=== PATIENT | male | born 1935 | race Caucasian/White ===

== ENCOUNTER 2017-12-12 08:22 | Inpatient (IN) ==
[2017-12-12 08:48] VITALS: BMI 18.8
[2017-12-12] MEDS ORDERED: LEVOTHYROXINE PO SCH (09:00)
[2017-12-12] MEDS ORDERED: NON-FORMULARY MEDICATION (Ferrous Sulfate [Iron] 325 MG) PO SCH (09:00)
--- NOTE | 2017-12-12 09:04 | ED.PDOC ---
General ED Provider: Dr. MIKE HERNANDES Chief Complaint: Weakness Stated Complaint: generalized weakness Time Seen by Physician: 08:29 (pt suffers from melanoma has been unable to eat ) Mode of Arrival: Wheelchair Information Source: Patient, Family Exam Limitations: No limitations Primary Care Provider: SASCHA BEASLEY Nursing and Triage Documentation Reviewed and Agree: Yes Does patient meet sepsis criteria?: No System Inflammatory Response Syndrome: Not Applicable Sepsis Protocol: For patient's 13 years and over: Temp is 96.8 and below OR 101 and greater Pulse >90 BPM Resp >20/minute Acutely Altered Mental Status Are patient's symptoms suggestive of a new infection, such as: -Pneumonia -Skin, Soft Tissue -Endocarditis -UTI -Bone, Joint Infection -Implantable Device -Acute Abdominal Infection -Wound Infection -Meningitis -Blood Stream Catheter Infection -Unknown Neurological Complaint Exam - Weakness Complaint/Exam Last Known Well: 1 week Onset: Gradual Duration: 1 week to 10 days more past few days no motor deficits Episodes Lasting: Days Initial Severity: Moderate Current Severity: Moderate Character: Reports: Weak Aggravating: Reports: None Alleviating: Reports: Rest Associated Signs and Symptoms: Denies: Nausea, Vomiting, Diaphoresis, Tinnitus, Chest pain, Short of air, Palpitations, Unsteady gait, GI blood loss, Visual changes, Decreased oral intake, Change in medication, Change in diet, OTC meds, Loss of balance Related History: Similar episode Cardiac Risk Factors: Reports: Hypertension, Diabetes, Elevated lipids CVA Risk Factors: Reports: Diabetes, Hypertension Related Surgical History: Reports: None JVD Present: No Carotid Bruit Present: No Rectal Heme Positive: No Glascow Coma Scale (see protocol): 15 Nystagmus Present: No Gag Reflex Present: No Meningeal Signs Positive: No Focal Weakness: Present: None Focal Sensory Loss: Present: None Gait: Unable Differential Diagnoses: Dysrhythmia, Metabolic abnormalities, Other (poor intake ) Quality Indicators for Cardiac Chest Pain: EKG in 10min. Quality Indicators for AMI: EKG in 10min. Quality Indicator For Non-Traumatic Chest Pain/Syncope: EKG Performed Review of Systems - Review Of Systems Constitutional: Reports: Malaise, Weakness Eyes: Reports: No symptoms Ears, Nose, Mouth, Throat: Reports: No symptoms Respiratory: Reports: No symptoms Cardiac: Reports: No symptoms GI: Reports: No symptoms : Reports: No symptoms Musculoskeletal: Reports: No symptoms Skin: Reports: No symptoms Neurological: Reports: No symptoms Endocrine: Reports: No symptoms Hematologic/Lymphatic: Reports: No symptoms All Other Systems: Reviewed and Negative Past Medical History - Past Medical History Previously Healthy: Yes Endocrine: Reports: DM 2, Hypothyroid, Dyslipidemia Cardiovascular: Reports: Hypertension Respiratory: Reports: None Hematological: Reports: None Gastrointestinal: Reports: GERD Genitourinary: Reports: None Neuro/Psych: Reports: None Musculoskeletal: Reports: None Cancer: Reports: Skin - Surgical History General Surgical History: Reports: Unknown - Family History Family History: Reports: Unknown - Social History Smoking Status: Former smoker Hx Substance Use: No Alcohol Screening: Occasionally Physical Exam - Physical Exam Appearance: Ill-appearing, Thin Ill-appearing: Moderate Eyes: SUSAN, EOMI, Conjunctiva clear ENT: Dry mucosa Respiratory: Airway patent, Breath sounds clear, Breath sounds equal, Respirations nonlabored Cardiovascular: RRR, Pulses normal, No rub, No murmur GI/: Soft, Nontender, No masses, Bowel sounds normal, No Organomegaly Musculoskeletal: Normal strength, ROM intact, No edema, No calf tenderness Skin: Warm, Dry, Normal color Neurological: Sensation intact, Motor intact, Reflexes intact, Cranial nerves intact, Alert, Oriented Psychiatric: Affect appropriate, Mood appropriate Interpretation - Radiology Interpretation Radiology Interpretation By: Radiologist Radiology Results: Positive (hilar mass) - Charter Coordinator Rate: Normal Rhythm: Sinus - EKG Interpretation Rate: Normal Rhythm: Sinus Ectopy: PACs (L.A.F.B SLIGHLY PROLONGED QT ) [place]: Left Physician Notification - Case Discussed Physician Notified: pmd Time of Notification: 10:10 Admit To: Inpatient Critical Care Note - Critical Care Note Total Time (mins): 0 Course - Course Hematology/Chemistry: 12/12/17 09:12 12/12/17 09:12 Orders, Labs, Meds: Lab Review 12/12/17 12/12/17 12/12/17 09:12 09:12 09:12 WBC 2.85 L RBC 4.09 L Hgb 11.2 L Hct 34.1 L MCV 83.4 MCH 27.4 MCHC 32.8 RDW Coeff of Hema 15.9 H Plt Count 197 Immature Gran % (Auto) 15.4 H Neut % (Auto) 44.5 Lymph % (Auto) 26.0 [place] % (Auto) 7.7 Eos % (Auto) 6.0 Baso % (Auto) 0.4 Immature Gran # (Auto) 0.4 Neut # (Auto) 1.3 L Lymph # (Auto) 0.7 [place] # (Auto) 0.2 L Eos # (Auto) 0.2 Baso # (Auto) 0.0 PT 11.2 H INR 1.12 APTT 34.0 Sodium 135 L Potassium 3.5 Chloride 100 Carbon Dioxide 25 Anion Gap 13.5 BUN 14 Creatinine 0.60 Estimated GFR (MDRD) 129.00 BUN/Creatinine Ratio 23.33 Glucose 174 H Calcium 8.3 Total Bilirubin 1.4 H AST 8 L ALT 17 Alkaline Phosphatase 64 Total Protein 5.1 L Albumin 2.3 L Globulin 2.8 Albumin/Globulin Ratio 0.82 Orders Category Date Time Status EKG-(ED ONLY) Stat CARDIO 12/12/17 08:46 Completed EKG-(IP & OP ONLY) DAILY CARDIO 12/13/17 06:00 Ordered EKG-(IP & OP ONLY) DAILY CARDIO 12/14/17 06:00 Ordered EKG-(IP & OP ONLY) DAILY CARDIO 12/15/17 06:00 Ordered BLOOD GLUCOSE MONITORING ACCUCHECK Q6H CARE 12/12/17 09:07 Active GIVE HS SNACK 2100 CARE 12/12/17 09:08 Active INTAKE & OUTPUT Q8HR CARE 12/12/17 09:08 Active VITAL SIGNS Q8HR CARE 12/12/17 09:01 Active ADA 1800 CAMI. DIET DIETARY 12/12/17 Lunch Ordered HS SNACK DIETARY 12/12/17 Dinner Ordered ED IV/MEDIPORT/POWERPORT .ONCE EMERGENCY 12/12/17 08:46 Active CBC W/ AUTO DIFF DAILY@0600 LAB 12/13/17 06:00 Ordered CBC W/ AUTO DIFF DAILY@0600 LAB 12/14/17 06:00 Ordered CBC W/ AUTO DIFF Stat LAB 12/12/17 09:12 Completed COMPREHENSIVE METABOLIC PANEL DAILY@0600 LAB 12/13/17 06:00 Ordered COMPREHENSIVE METABOLIC PANEL DAILY@0600 LAB 12/14/17 06:00 Ordered COMPREHENSIVE METABOLIC PANEL Stat LAB 12/12/17 09:12 Completed PARTIAL THROMBOPLASTIN TIME Stat LAB 12/12/17 09:12 Completed PT WITH INR Stat LAB 12/12/17 09:12 Completed URINALYSIS C & S IF INDICATED Stat LAB 12/12/17 08:46 Uncollected 0.9 % Sodium Chloride [Saline Flush] MEDS 12/12/17 08:45 Active 1 syr IVF PRN PRN Aspirin [Aspirin Chewable] MEDS 12/12/17 09:00 Active 81 mg PO DAILYWM Atorvastatin Calcium [Lipitor] MEDS 12/12/17 09:00 Active 10 mg PO DAILY Ferrous Sulfate MEDS 12/12/17 09:30 Active 324 mg PO DAILY Folic Acid MEDS 12/12/17 09:00 Active 1 mg PO DAILY Insulin Regular, Human [Humulin R] MEDS 12/12/17 09:09 Active See Protocol SUBCUT PRN PRN Levothyroxine Sodium [Synthroid] MEDS 12/12/17 09:30 Active 200 mcg PO QDAC Pantoprazole Sodium [Protonix] MEDS 12/12/17 09:00 Active 40 mg PO QDAC Sodium Chloride 0.9% [Sodium Chloride] 1,500 ml MEDS 12/12/17 09:30 Active IV 75 mls/hr CHEST, 1V AP ONLY Stat RADS 12/12/17 08:46 Completed Medications Generic Name Dose Route Start Last Admin Trade Name Freq PRN Reason Stop Dose Admin Aspirin 81 mg 12/12/17 09:00 Aspirin Chewable PO DAILYWM RUFINA Atorvastatin Calcium 10 mg 12/12/17 09:00 Lipitor PO DAILY RUFINA Ferrous Sulfate 324 mg 12/12/17 09:30 Ferrous Sulfate PO DAILY RUFINA Folic Acid 1 mg 12/12/17 09:00 Folic Acid PO DAILY RUFINA Sodium Chloride 1,500 mls @ 75 mls/hr 12/12/17 09:30 Sodium Chloride IV .Q20H RUFINA Insulin Human Regular 0 unit 12/12/17 09:09 Humulin R SUBCUT PRN PRN Hyperglycemica Protocol Levothyroxine Sodium 200 mcg 12/12/17 09:30 Synthroid PO QDAC RUFINA Pantoprazole Sodium 40 mg 12/12/17 09:00 Protonix PO QDAC RUFINA Sodium Chloride 1 syr 12/12/17 08:45 Saline Flush IVF PRN PRN To flush IV Vital Signs: Temp Pulse Resp BP Pulse Ox 12/12/17 08:22 97.8 F 101 H 20 95/56 L 97 Departure - Departure Time of Disposition: 10:10 Disposition: ADMITTED INPATIENT Discharge Problem: Generalized weakness Anemia Qualifiers: Anemia type: unspecified type Qualified Code(s): D64.9 - Anemia, unspecified Neutropenia Qualifiers: Neutropenia type: unspecified Qualified Code(s): D70.9 - Neutropenia, unspecified Instructions: Weakness (ED) Condition: Good Pt referred to PMD for follow-up: Yes IPMP verified?: No Additional Instructions: Please call your Family Physician as soon as possible to schedule a follow-up appointment. Allergies/Adverse Reactions: Allergies No Known Allergies Allergy (Verified 12/12/17 08:32) Home Medications: Ambulatory Orders Aspirin [Win Chewable] 81 mg PO DAILY 09/21/15 Atorvastatin Calcium [Lipitor] 10 mg PO DAILY 09/21/15 Ferrous Sulfate [Iron] 325 mg PO DAILY 09/21/15 Levothyroxine Sodium [Synthroid] 0.2 mg PO DAILY 09/21/15 Pantoprazole Sodium [Protonix] 40 mg PO DAILY 09/21/15 Folic Acid 1 mg PO DAILY 12/12/17 Insulin Glargine,Hum.rec.anlog [Hubert Tate] 25 unit SQ INSULIN EVENING Disposition Discussed With: Patient, Family
--- NOTE | 2017-12-12 09:07 | DI ---
EXAM: Chest one view, frontal view only. HISTORY: Cough. COMPARISON: None available. FINDINGS: Right-sided chest port present from a subclavian approach with tip projecting over the sup erior vena cava. Mass-like consolidation in the right hilum measures up to 7.5 cm. There is increas ed opacity in the right paratracheal region as well which may be accentuated by rightward deviation o f the lower trachea and right-sided volume loss. Left lung is grossly clear. No pleural effusion or pneumothorax identified. Heart size is normal. There is no vascular congestion. No acute osseous a bnormality is detected. IMPRESSION: Large right hilar mass likely representing bronchogenic carcinoma. No prior studies available for co mparison, although presence of chest port suggests this is a known finding.
[2017-12-12] MEDS: SODIUM CHLORIDE 1,500 ML IV SCH (11:16)
[2017-12-12] MEDS ORDERED: SODIUM CHLORIDE 1,000 ML IV ONE (11:16)
[2017-12-12] MEDS: ASPIRIN CHEWABLE PO SCH (11:47)
[2017-12-12] MEDS: PROTONIX PO SCH (11:47)
[2017-12-12] MEDS: SYNTHROID PO SCH (11:47)
[2017-12-12] MEDS: LIPITOR PO SCH (11:48)
[2017-12-12] MEDS: FERROUS SULFATE PO SCH (11:48)
[2017-12-12] MEDS: FOLIC ACID PO SCH (11:48)
[2017-12-12] MEDS: HUMULIN R SUBCUT PRN ×2 (18:09→20:24)
[2017-12-13] MEDS: SODIUM CHLORIDE 1,500 ML IV SCH ×2 (00:08→14:00)
[2017-12-13] MEDS ORDERED: SODIUM CHLORIDE 1,000 ML IV ONE ×2 (00:08→14:00)
[2017-12-13] MEDS: SYNTHROID PO SCH (05:46)
[2017-12-13] MEDS: PROTONIX PO SCH (05:46)
--- NOTE | 2017-12-13 08:22 | PN ---
DATE OF SERVICE: 12/12/17 SUBJECTIVE: The patient was hospitalized with failure to thrive and dehydration. The patient has a mass in the chest, hilar mass that seems to be obstructing with dysphagia. The patient has melanoma which has metastasized. The patient endstage melanoma with metastasis, considering Hospice. We will let him know tomorrow. Family is agreeable to Hospice especially the . CONDITION: Stable for now. TIME SPENT: More than 30 minutes. Plan and coordination of the patient's care discussed in the presence of nurse. DIMAS
[2017-12-13] MEDS: ASPIRIN CHEWABLE PO SCH (08:32)
[2017-12-13] MEDS: LIPITOR PO SCH (08:32)
[2017-12-13] MEDS: FERROUS SULFATE PO SCH (08:32)
[2017-12-13] MEDS: FOLIC ACID PO SCH (08:32)
--- NOTE | 2017-12-13 08:41 | HP ---
DATE OF SERVICE: 12/12/17 REASON FOR HOSPITALIZATION/HISTORY OF PRESENT ILLNESS: This is an 82 year old white male who presented to the emergency room with weakness, shortness of breath and pain. He has a long history of melanoma with metastasis. 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 He also has metastasis to the lung. He does see Dr. Cifuentes as well as [facility]illa regarding his cancer. He has recently been undergoing chemo but has steadily declined as far as weight loss fatigue and generalized weakness. PAST MEDICAL HISTORY: Melanoma left arm, he seen [facility] Squamous cell left face Lung cancer, see Dr. Cifuentes Mass in the right kidney, sees Dr. Cifuentes Diabetes Mellitus type 2 Hypertension Dyslipidemia Anemia Polyarthritis GERD Hypothyroidism History of lymphoma CLL COPD Chronic cough Previous A1c was 4.5 on 09/06. He has also has recent weight loss, a loss of at 15 pounds in the past three months. PAST SURGICAL HISTORY: Multiple surgeries on his left arm regarding the melanoma Right port put in place a few months ago in 10/[address] Pacheco Surgery on left cheek after the squamous cell REVIEW OF SYSTEMS: CONSTITUTIONAL: No night sweats. Fatigue. No fever or chills. Anemia, generalized weakness. HEENT: Eyes: No visual changes. No eye pain. No eye discharge. ENT: No runny nose. No epistaxis. No sinus pain. No sore throat. No odynophagia. No ear pain. No congestion. RESPIRATORY: No cough, no congestion. No hemoptysis. No shortness of breath. CARDIOVASCULAR: No angina symptoms. No CHF symptoms. No atypical chest pain for CAD. No palpitations. No PND. No orthopnea. GASTROINTESTINAL: No abdominal pain. No nausea or vomiting. No diarrhea or constipation. No hematemesis. No hematochezia. Loss of appetite. GENITOURINARY: No urgency. No frequency. No dysuria. No hematuria. No obstructive symptoms. No discharge. No pain. No significant abnormal bleeding. MUSCULOSKELETAL: No musculoskeletal pain. No joint swelling. No arthritis. NEUROLOGICAL: No headache. No neck pain. No syncope. No seizures. No dizziness. PSYCHIATRIC: Not anxious. No depression. No suicidal thoughts. No homicidal thoughts. SKIN: No rash. No lesions. No wounds. ENDOCRINE: No unexplained weight loss. No weight gain. HEMATOLOGIC/LYMPHATIC: No anemia. No purpura. No petechiae. No prolonged or excessive bleeding. No palpable lymph nodes. PERSONAL/FAMILY/SOCIAL HISTORY: He is non smoker, no alcohol or illicit drug use. He is and lives at home with his , Kimber Cat. MEDICATIONS: Protonix 40mg PO daily Synthroid 125mcg PO QDAC Iron 325mg PO QPM Lipitor 10mg PO QPM Aspirin 81mg QPM Folic acid 1mg PO daily Toujeo Solostar 25 units SQ insulin evening ALLERGIES: No known allergies PHYSICAL EXAMINATION: GENERAL: The patient is pale, alert and oriented. VITAL SIGNS: Temperature 97.8, heart rate 101, respiratory rate 20, blood pressure 95/56 and pulse ox 97%. Weight is 147 pounds. He has lost 10 more pounds since he was in our office a month ago. HEENT: Head normocephalic, atraumatic. Eyes: Extraocular muscles are intact. Pupils are equal, round and reactive to light and accommodation. Ears: No lesions. Nose appeared normal. Throat: No exudate or erythema. NECK: Supple. No JVD, no carotid bruit. No lymphadenopathy or thyromegaly. LUNGS: Severely diminished breath sounds. Clear to auscultation. Percussion note normal. Chest symmetrical. HEART: S1, S2, no S3. No murmurs. No cyanosis or clubbing. No ascites. Pulses: Dorsalis pedis and posterior tibial pulses +1 to +2 bilaterally. ABDOMEN: Soft. Nontender. Bowel sounds active. No CVA tenderness. No mass felt. EXTREMITIES: No edema. Full range of motion of all extremities, equal. NEUROLOGIC: No focal deficit. Cranial nerves II through XII are grossly intact. No headache, no double vision or headache. SKIN: Not dry. Intact. Turgor - normal. Open wound on left forearm which is chronic. Scaring on his face with a little facial paralysis on the left side which again is chronic due to surgery. LYMPHATIC: No palpable lymph nodes/no lymphedema. MUSCULOSKELETAL: Normal joints with no swelling. Muscle tone is normal. LABS: Chest x-ray on admission shows large right hilar mass likely representing bronchogenic carcinoma which is a known finding. Sodium 135, potassium 3.5, BUN 14, creatinine 0.6 and glucose 174, GFR 129, bilirubin 1.4, AST 8, ALT 17, total protein 5.1, Albumin 2.3, Globulin 2.8, Alkaline phosphatase 64, PT 11.2, INR 1.12 and WBC 2.85, hgb 11.2, hct 34.1, plt count 197. ASSESSMENT: 1. Generalized weakness 2. Dehydration 3. Anemia 4. Neutropenia 5. Melanoma with metastasis 6. History of CLL 7. History of Lymphoma PLAN: 1. Will admit 2. Start normal saline IV at 75cc an hour 3. Continue all home medication 4. CBC and CMP daily 5. Routine telemetry orders 6. He is scheduled to have upper GI on Saturday with Dr. San, we will cancel this 7. Regular diet Will follow closely. TIME SPENT: More than 70 minutes. MTDD
--- NOTE | 2017-12-13 09:23 | PCM.PROG ---
Attending Provider: ATTENDING PROVIDER: Dr. SASCHA BEASLEY This patient is seen with Anna Nagel, Nurse Practitioner. DATE OF SERVICE: 12/13/17 SUBJECTIVE: This 82 year old WHITE/ M was hospitalized 12/12/17. The patient is lying in bed, alert, resting comfortably. He is still not eating. His potassium level is lower today. Will continue IV fluids. REVIEW OF SYSTEMS: CONSTITUTIONAL: Fatigue, extreme weakness. Pallor positive. No night sweats. No malaise, lethargy. No fever or chills. HEENT: Eyes: No visual changes. No eye pain. No eye discharge. ENT: No runny nose. No epistaxis. No sinus pain. No odynophagia. No congestion. RESPIRATORY: No cough, no congestion. No hemoptysis. Shortness of breath with exertion. CARDIOVASCULAR: No angina symptoms. No CHF symptoms. No atypical chest pain for CAD. No palpitations. No orthopnea.. GASTROINTESTINAL: No appetite. No abdominal pain. No nausea or vomiting. No diarrhea or constipation. No hematemesis. No hematochezia. GENITOURINARY: No urgency. No frequency. No dysuria. No hematuria. No obstructive symptoms. No discharge. No pain. No significant abnormal bleeding. MUSCULOSKELETAL: No musculoskeletal pain; no joint swelling. NEUROLOGICAL: Awake, alert, oriented to time, place and person. No headache. No neck pain. No syncope. No seizures. No dizziness. PSYCHIATRIC: Not anxious. No depression. No suicidal thoughts. No homicidal thoughts. SKIN: No rash. No lesions. No wounds. ENDOCRINE: Weight loss. HEMATOLOGIC/LYMPHATIC: No anemia. No purpura. No petechiae. No prolonged or excessive bleeding. No palpable lymph nodes. PHYSICAL EXAMINATION: GENERAL: The patient is awake, alert and oriented, sitting in bed in no distress. VITAL SIGNS: Temperature 98.6 F, Pulse 88, Respiratory Rate 24, BP 140/75, Pulse Ox 97% HEENT: Head normocephalic, atraumatic. Eyes: Extraocular muscles are intact. Pupils are equal, round and reactive to light and accommodation. Ears: No lesions. Nose appeared normal. Throat: No exudate or erythema. Pallor positive. NECK: Supple. No JVD, no carotid bruit. No lymphadenopathy or thyromegaly. LUNGS: Diminished breath sounds bilaterally. Clear to auscultation. Percussion note normal. Chest symmetrical. HEART: S1, S2, no S3. No murmurs. No cyanosis or clubbing. No ascites. Pulses: Dorsalis pedis and posterior tibial pulses +1 to +2 both sides. ABDOMEN: Soft. Non-tender. Bowel sounds active. No CVA tenderness. No mass felt. EXTREMITIES: No edema. Full range of motion of all extremities, equal. NEUROLOGIC: No focal deficit. Cranial nerves II through XII are grossly intact. No headache, no double vision or headache. SKIN: Warm, dry. Intact. Turgor-normal. LYMPHATIC: No palpable lymph nodes/no lymphedema. MUSCULOSKELETAL: Normal joints with no swelling. Muscle tone is normal. LAB REVIEW: 12/13/17 05:00 12/13/17 05:00 12/13/17 05:00: Sodium 136, Potassium 3.2 L, Chloride 103, Carbon Dioxide 26, Anion Gap 10.2, BUN 13, Creatinine 0.64, Estimated GFR (MDRD) 120.00, BUN/ Creatinine Ratio 20.31, Glucose 81 L D, Calcium 7.9 L, Total Bilirubin 0.9, AST 12 L, ALT 16, Alkaline Phosphatase 62, Total Protein 4.6 L, Albumin 2.0 L, Globulin 2.6, Albumin/Globulin Ratio 0.77 12/13/17 05:00: WBC 2.36 L, RBC 3.83 L, Hgb 10.5 L, Hct 32.4 L, MCV 84.6, MCH 27.4, MCHC 32.4, RDW Coeff of Hema 15.7 H, Plt Count 201, Neut % (Auto) 45.0, Lymph % (Auto) 38.0, [place] % (Auto) 10, Eos % (Auto) 7.0, Neutrophils % (Manual) 45.0, Lymphocytes % (Manual) 38.0, Monocytes % (Manual) 10.0, Eosinophils % ( Manual) 7.0 H, Anisocytosis Not present 12/12/17 13:57: Urine Color Yellow, Urine Clarity Clear, Urine pH 6.0, Ur Specific [place] 1.015, Urine Protein 1+, Urine Glucose (UA) Negative, Urine Ketones Negative, Urine Blood 2+, Urine Nitrite Negative, Urine Bilirubin Negative, Urine Urobilinogen 2.0, Ur Leukocyte Esterase Negative, Urine Microscopic RBC 0-2, Urine Microscopic WBC 2-5, Ur Squamous Epith Cells Not present, Ur Transition Epith Cell 2-5, Urine Bacteria 1+ 12/12/17 09:12: PT 11.2 H, INR 1.12, APTT 34.0 12/12/17 09:12: Sodium 135 L, Potassium 3.5, Chloride 100, Carbon Dioxide 25, Anion Gap 13.5, BUN 14, Creatinine 0.60, Estimated GFR (MDRD) 129.00, BUN/ Creatinine Ratio 23.33, Glucose 174 H, Calcium 8.3, Total Bilirubin 1.4 H, AST 8 L, ALT 17, Alkaline Phosphatase 64, Total Protein 5.1 L, Albumin 2.3 L, Globulin 2.8, Albumin/Globulin Ratio 0.82 12/12/17 09:12: WBC 2.85 L, RBC 4.09 L, Hgb 11.2 L, Hct 34.1 L, MCV 83.4, MCH 27.4, MCHC 32.8, RDW Coeff of Hema 15.9 H, Plt Count 197, Immature Gran % (Auto) 15.4 H, Neut % (Auto) 44.5, Lymph % (Auto) 26.0, [place] % (Auto) 7.7, Eos % (Auto ) 6.0, Baso % (Auto) 0.4, Immature Gran # (Auto) 0.4, Neut # (Auto) 1.3 L, Lymph # (Auto) 0.7, [place] # (Auto) 0.2 L, Eos # (Auto) 0.2, Baso # (Auto) 0.0 ASSESSMENT: 1. Generalized weakness 2. Dehydration 3. Anemia 4. Weight loss 5. Melanoma with metastasis to right lung 6. Squamous cell cancer left cheek 7. History of CLL PLAN: 1. Potassium 20 mg t.i.d. today and 20 mg b.i.d. tomorrow 2. T4 and TSH 3. D/C telemetry 4. Discussed in detail prognosis, option of discontinuing chemotherapy and comfort measures. The patient demonstrates understanding although is unsure of his decision at this point. Plan and coordination of the patient's care discussed in the presence of Drum Stock Clerk and nurse. SCRIBED BY: RACHEL SILVA Jewelry Manager scribed while in presence of service performed by Dr. Beasley/Anna Nagel APRN on 12/13/17 ([id number])
[2017-12-13] MEDS: HUMULIN R SUBCUT PRN ×3 (10:59→22:02)
--- NOTE | 2017-12-13 11:08 | PN ---
DATE OF SERVICE: 12/13/17 SUBJECTIVE: The patient was hospitalized yesterday with weakness, shortness of breath and dehydration. The patient's condition is deteriorating with his endstage cancer, melanoma malignant which was diagnosed several years ago now with metastasis to the lung. The patient's family thinking about Hospice. This morning Hospice was discussed with the patient. The patient is DNR. He is in tears and having a hard time accepting Hospice status. Continued to talk to him. CONDITION: Stable TIME SPENT: More than 30 minutes. Plan and coordination of the patient's care discussed in the presence of nurse. DIMAS
[2017-12-13] MEDS ORDERED: K-DUR PO SCH ×2 (12:00→21:00)
[2017-12-13] MEDS ORDERED: K-DUR PO STA (17:15)
[2017-12-13] MEDS: XANAX PO SCH (21:49)
[2017-12-14] MEDS: PHENERGAN WITH CODEINE 6.25/10 MG/5 ML PO PRN (00:23)
[2017-12-14] MEDS: SODIUM CHLORIDE 1,000 ML IV SCH ×2 (03:20→09:12)
[2017-12-14] MEDS: SYNTHROID PO SCH (06:03)
[2017-12-14] MEDS: PROTONIX PO SCH (06:03)
[2017-12-14] MEDS: FERROUS SULFATE PO SCH (09:08)
[2017-12-14] MEDS: K-DUR PO SCH ×2 (09:08→16:46)
[2017-12-14] MEDS: FOLIC ACID PO SCH (09:08)
[2017-12-14] MEDS: ASPIRIN CHEWABLE PO SCH (09:08)
[2017-12-15] MEDS: SYNTHROID PO SCH (06:15)
[2017-12-15] MEDS: PROTONIX PO SCH (06:15)
[2017-12-15] MEDS: SODIUM CHLORIDE 1,000 ML IV SCH ×3 (06:26→20:19)
[2017-12-15] MEDS: XANAX PO SCH (06:33)
[2017-12-15] MEDS: ASPIRIN CHEWABLE PO SCH (10:30)
[2017-12-15] MEDS: FERROUS SULFATE PO SCH (10:31)
[2017-12-15] MEDS: FOLIC ACID PO SCH (10:31)
[2017-12-15] MEDS: PHENERGAN WITH CODEINE 6.25/10 MG/5 ML PO PRN (19:58)
[2017-12-15] MEDS: HUMULIN R SUBCUT PRN (21:03)
[2017-12-16] MEDS: PHENERGAN WITH CODEINE 6.25/10 MG/5 ML PO PRN (00:15)
[2017-12-16] MEDS: HUMULIN R SUBCUT PRN ×2 (06:20→11:11)
[2017-12-16] MEDS: XANAX PO SCH (06:26)
[2017-12-16] MEDS: FERROUS SULFATE PO SCH (08:21)
[2017-12-16] MEDS: FOLIC ACID PO SCH (08:21)
[2017-12-16] MEDS: PROTONIX PO SCH (08:21)
[2017-12-16] MEDS: ASPIRIN CHEWABLE PO SCH (08:21)
[2017-12-16] MEDS: SYNTHROID PO SCH (08:22)
--- NOTE | 2017-12-16 09:32 | PN ---
DATE OF SERVICE: 12/15/17 SUBJECTIVE: The patient's condition is stable but declining overall. The patient has decided not to eat. He continues to receive IV fluids. He was reluctant to do that. The patient will be on hospice from tomorrow. PHYSICAL EXAMINATION: HEENT: Head normocephalic, atraumatic. Eyes: Extraocular muscles are intact. Pupils are equal, round and reactive to light and accommodation. Ears: No lesions. Nose appeared normal. Throat: No exudate or erythema. He is somewhat pale. NECK: Supple. No JVD, no carotid bruit. No lymphadenopathy or thyromegaly. LUNGS: Clear to auscultation. Percussion note normal. Chest symmetrical. HEART: S1, S2, no S3. No murmurs. No cyanosis or clubbing. No ascites. Pulses: Dorsalis pedis and posterior tibial pulses +1 to +2 both sides. ABDOMEN: Soft. Nontender. Bowel sounds active. No CVA tenderness. No mass felt. EXTREMITIES: No edema. Full range of motion of all extremities, equal. NEUROLOGIC: He is oriented to time, place and person. No focal deficit. Cranial nerves II through XII are grossly intact. No headache, no double vision or headache. SKIN: Not dry. Intact. Turgor - normal. LYMPHATIC: No palpable lymph nodes/no lymphedema. MUSCULOSKELETAL: Normal joints with no swelling. Muscle tone is normal. The family in the room, especially the all the time. ASSESSMENT: 1. METASTATIC LUNG CANCER FROM MELANOMA, END STAGE PLAN: 1. Be on Hospice tomorrow. The family has decided to go with nurse hospice. TIME SPENT: More than 30 minutes. Plan and coordination of the patient's care discussed in the presence of nurse. DIMAS
--- NOTE | 2017-12-16 09:48 | PN ---
DATE OF SERVICE: 12/14/17 SUBJECTIVE: Daughter and are present. The patient says he is not going to eat. He has made up his mind. He is oriented to time, place and person. He wants to be on Hospice. PHYSICAL EXAMINATION: VITAL SIGNS: Temperature 99.6, pulse 98, respiratory rate 18, BP 120/60, pulse ox 96%. HEENT: Head normocephalic, atraumatic. Eyes: Extraocular muscles are intact. Pupils are equal, round and reactive to light and accommodation. Ears: No lesions. Nose appeared normal. Throat: No exudate or erythema. NECK: Supple. No JVD, no carotid bruit. No lymphadenopathy or thyromegaly. LUNGS: Decreased breath sounds but clear to auscultation. Percussion note normal. Chest symmetrical. HEART: S1, S2, no S3. No murmurs. No cyanosis or clubbing. No ascites. Pulses: Dorsalis pedis and posterior tibial pulses +1 to +2 both sides. ABDOMEN: Soft. Nontender. Bowel sounds active. No CVA tenderness. No mass felt. EXTREMITIES: No edema. Full range of motion of all extremities, equal. NEUROLOGIC: No focal deficit. Cranial nerves II through XII are grossly intact. No headache, no double vision or headache. SKIN: Not dry. Intact. Turgor - normal. LYMPHATIC: No palpable lymph nodes/no lymphedema. MUSCULOSKELETAL: Normal joints with no swelling. Muscle tone is normal. LABS: Hemoglobin 10.2, hematocrit 31, WBC 2,600, normal differential. Creatinine 0.6, BUN 10, potassium 4. ASSESSMENT: 1. Weakness 2. Dehydration 3. Inability to eat 4. Dysphagia 5. Anemia 6. The patient has metastatic lesion in the right hilar area which seems to be obstructing and causing dysphagia. PLAN: 1. The patient is to try pureed diet. 2. D/C telemetry. 3. Supportive measures. 4. The patient's family has decided to go with [facility]. TIME SPENT: More than 30 minutes. Plan and coordination of the patient's care discussed in the presence of nurse. DIMAS
--- NOTE | 2017-12-16 10:27 | RS.SLPCNOT ---
Speech Case Note Date of Note: 12/16/17 Title: Speech consult Note: TOBACCO STRIPPING MACHINE OPERATOR provided written instructions for; recommendations, swallow strategies , and safe swallow precautions. The and patient asked multiple questions about swallowing and oral care routine. The TOBACCO STRIPPING MACHINE OPERATOR answered all questions, explained s/s of aspiration, and demonstrated oral care routine.
--- NOTE | 2017-12-16 11:23 | CM.DICTOOL ---
ADMISSION: 12/12/17 10:13 DISCHARGE: DECEMBER 16, 2017 DATE OF SERVICE: 12/16/17 FINAL DIAGNOSIS DEHYDRATION WEAKNESS NEUTROPENIA LUNG MASS, RIGHT (CHEMO) DR. MATIAS ANEMIA, TRANSFUSION (12/09 OP) DIABETES, TYPE 2 HYPOTHYROID DYSLIPIDEMIA HYPERTENSION MALIGNANT MELANOMA, LEFT ARM SKIN GRAFT, LEFT ARM (FAILED) SQUAMOUS CELL CARCINOMA, LEFT CHEEK HISTORY OF LYMPHOMA RIGHT KIDNEY MASS, DR. MATIAS COPD HYPOKALEMIA RIGHT SUBCLAVIAN PORT (SEPTEMBER 2017) LAST VITALS Temp Pulse Resp BP Pulse Ox 98.1 F 91 H 16 105/66 98 12/16/17 05:35 12/16/17 05:35 12/16/17 05:35 12/16/17 05:35 12/16/17 05:35 TAKE THESE MEDICATIONS AT HOME Levothyroxine Sodium (Synthroid) 200 mcg PO QDAC [facility] Last Admin: 12/16/17 08:22 Dose: Not Given ALLERGIES No Known Allergies Allergy (Verified 12/12/17 08:32) DISCONTINUED MEDICATIONS Aspirin Toujeo Folic Acid Ferrous Sulfate Lipitor Protonix NEW PRESCRIPTIONS: None SMOKING: Not Applicable DISEASE SPECIFIC EDUCATION: Right hilar lung mass Hospice Nutrition LAB REVIEW: 12/16/17 04:15 12/16/17 04:15 12/16/17 04:15: Sodium 135 L, Potassium 3.5, Chloride 104, Carbon Dioxide 24, Anion Gap 10.5, BUN 9, Creatinine 0.60, Estimated GFR (MDRD) 129.00, BUN/ Creatinine Ratio 15.00, Glucose 154 H D, Calcium 7.6 L, Total Bilirubin 1.0, AST 12 L, ALT 19, Alkaline Phosphatase 61, Total Protein 4.5 L, Albumin 1.9 L, Globulin 2.6, Albumin/Globulin Ratio 0.73 12/16/17 04:15: WBC 4.23, RBC 3.58 L, Hgb 9.8 L, Hct 30.2 L, MCV 84.4, MCH 27.4 , MCHC 32.5, RDW Coeff of Hema 15.7 H, Plt Count 194, Immature Gran % (Auto) Enterprise Systems Administrator, Neut % (Auto) Enterprise Systems Administrator, Lymph % (Auto) Enterprise Systems Administrator, [place] % (Auto) Enterprise Systems Administrator, Eos % (Auto) Enterprise Systems Administrator, Baso % ( Auto) Enterprise Systems Administrator, Immature Gran # (Auto) Enterprise Systems Administrator, Neut # (Auto) Enterprise Systems Administrator, Lymph # (Auto) Enterprise Systems Administrator, Bosque # (Auto) Enterprise Systems Administrator, Eos # (Auto) Enterprise Systems Administrator, Baso # (Auto) Enterprise Systems Administrator, Neutrophils % (Manual) 44.0, Lymphocytes % (Manual) 38.0, Monocytes % (Manual) 10.0, Eosinophils % (Manual) 8.0 H, Plt Morphology Comment Normal, Anisocytosis Not present, RBC Morph Comment Normal PLAN: Discharge home Diet: Resume as tolerated. Recommendations for safe swallowing, aspiration precautions and oral care discussed by Speech Therapist, Kathryn Gusman with the , Kimber Zhu. Diet recommendations discussed with the by Dietitian, Jennifer Tyler Activity: As tolerated A referral [facility] been [facility] to [facility] at the request of the patient and family. Information sent via fax to [facility]. Patient and family will be contacted after the discharge home today. An appointment is scheduled with Anna Nagel APRN/Dr. Case on Dec.25 at 11 :15 (OPTIONAL) Code Status: DNR Mr. Zhu is alert and oriented x 3. He is independent with bed mobility and utilizes a cane for ambulation. He transfers with assistance of one staff member due to weakness, IV pump. Meal intakes are poor at less than 25% for past several days. Skin is in fair condition except for an open wound to the left forearm from removal of a melanoma and failed skin graft. The wound is 8 cm x 5 cm x 2 cm depth and has areas of necrosis noted. Serous drainage is noted. Current dressing orders are wet to dry dressings BID. No other open areas are noted. Fareed Case MD
--- NOTE | 2017-12-16 11:27 | PCM.PROG ---
Attending Provider: ATTENDING PROVIDER: Dr. SASCHA BEASLEY DATE OF SERVICE: 12/16/17 SUBJECTIVE: This 82 year old WHITE/ M was hospitalized 12/12/17 with weakness of overall medical status, difficulty swallowing and has large lung mass, metastatic melanoma. REVIEW OF SYSTEMS: CONSTITUTIONAL: No night sweats. No fatigue, malaise, lethargy. No fever or chills. HEENT: Eyes: No visual changes. No eye pain. No eye discharge. ENT: No runny nose. No epistaxis. No sinus pain. No odynophagia. No congestion. RESPIRATORY: No cough, no congestion. No hemoptysis. No shortness of breath. CARDIOVASCULAR: No angina symptoms. No CHF symptoms. No atypical chest pain for CAD. No palpitations. No orthopnea.. GASTROINTESTINAL: No abdominal pain. No nausea or vomiting. No diarrhea or constipation. No hematemesis. No hematochezia. GENITOURINARY: No urgency. No frequency. No dysuria. No hematuria. No obstructive symptoms. No discharge. No pain. No significant abnormal bleeding. MUSCULOSKELETAL: No musculoskeletal pain; no joint swelling. NEUROLOGICAL: Awake, alert, oriented to time, place and person. No headache. No neck pain. No syncope. No seizures. No dizziness. PSYCHIATRIC: Not anxious. No depression. No suicidal thoughts. No homicidal thoughts. SKIN: No rash. No lesions. No wounds. ENDOCRINE: No unexplained weight loss. No weight gain. HEMATOLOGIC/LYMPHATIC: No anemia. No purpura. No petechiae. No prolonged or excessive bleeding. No palpable lymph nodes. PHYSICAL EXAMINATION: GENERAL: The patient is awake, alert and oriented, lying in bed in no distress. VITAL SIGNS: Temperature 98.1 F, Pulse 91, Respiratory Rate 16, BP 105/66, Pulse Ox 98% HEENT: Head normocephalic, atraumatic. Eyes: Extraocular muscles are intact. Pupils are equal, round and reactive to light and accommodation. Ears: No lesions. Nose appeared normal. Throat: No exudate or erythema. NECK: Supple. No JVD, no carotid bruit. No lymphadenopathy or thyromegaly. LUNGS: Decreased breath sounds. Clear to auscultation. Percussion note normal. Chest symmetrical. HEART: S1, S2, no S3. No murmurs. No cyanosis or clubbing. No ascites. Pulses: Dorsalis pedis and posterior tibial pulses +1 to +2 both sides. ABDOMEN: Soft. Non-tender. Bowel sounds active. No CVA tenderness. No mass felt. EXTREMITIES: No edema. Full range of motion of all extremities, equal. NEUROLOGIC: No focal deficit. Cranial nerves II through XII are grossly intact. No headache, no double vision or headache. SKIN: Warm and dry. Intact. Turgor-normal. LYMPHATIC: No palpable lymph nodes/no lymphedema. MUSCULOSKELETAL: Normal joints with no swelling. Muscle tone is normal. LAB REVIEW: 12/16/17 04:15 12/16/17 04:15 12/16/17 04:15: Sodium 135 L, Potassium 3.5, Chloride 104, Carbon Dioxide 24, Anion Gap 10.5, BUN 9, Creatinine 0.60, Estimated GFR (MDRD) 129.00, BUN/ Creatinine Ratio 15.00, Glucose 154 H D, Calcium 7.6 L, Total Bilirubin 1.0, AST 12 L, ALT 19, Alkaline Phosphatase 61, Total Protein 4.5 L, Albumin 1.9 L, Globulin 2.6, Albumin/Globulin Ratio 0.73 12/16/17 04:15: WBC 4.23, RBC 3.58 L, Hgb 9.8 L, Hct 30.2 L, MCV 84.4, MCH 27.4 , MCHC 32.5, RDW Coeff of Hema 15.7 H, Plt Count 194, Immature Gran % (Auto) Integrated Circuit Ic Layout Designer, Neut % (Auto) Integrated Circuit Ic Layout Designer, Lymph % (Auto) Integrated Circuit Ic Layout Designer, Brooks % (Auto) Integrated Circuit Ic Layout Designer, Eos % (Auto) Integrated Circuit Ic Layout Designer, Baso % ( Auto) Integrated Circuit Ic Layout Designer, Immature Gran # (Auto) Integrated Circuit Ic Layout Designer, Neut # (Auto) Integrated Circuit Ic Layout Designer, Lymph # (Auto) Integrated Circuit Ic Layout Designer, Brooks # (Auto) Integrated Circuit Ic Layout Designer, Eos # (Auto) Integrated Circuit Ic Layout Designer, Baso # (Auto) Integrated Circuit Ic Layout Designer, Neutrophils % (Manual) 44.0, Lymphocytes % (Manual) 38.0, Monocytes % (Manual) 10.0, Eosinophils % (Manual) 8.0 H, Plt Morphology Comment Normal, Anisocytosis Not present, RBC Morph Comment Normal ASSESSMENT: Overall deterioration of condition with metastatic lung cancer PLAN: 1. Discharge home with hospice. 2. The patient and family have changed their mind and want residential hospice. Condition at discharge is stable. Prognosis is poor. The patient is unable to eat and swallow because of mass in lung obstructing passage of food. He doesn't want to eat. He wants conservative management. He has appointment with Dr. Cifuentes but canceled with test. I agree with overall family decision. Plan and coordination of the patient's care discussed in the presence of Crab Steamer and nurse. CONDITION: Stable SCRIBED BY: RACHEL SILVA Pantograph Operator scribed while in presence of service performed by Dr. SASCHA BEASLEY on 12/16/17 (2005)
[2017-12-16 11:28] VITALS: BP 106/55; TEMP 97.8
--- NOTE | 2017-12-16 12:46 | DS ---
DATE OF SERVICE: 12/16/17 FINAL DIAGNOSIS: 1. DEHYDRATION 2. WEAKNESS 3. NEUTROPENIA 4. LUNG MASS, RIGHT (CHEMO) DR. MATIAS 5. ANEMIA, TRANSFUSION (12/09 OP) 6. DIABETES TYPE 2 7. HYPOTHYROID 8. DYSLIPIDEMIA 9. HYPERTENSION 10. MALIGNANT MELANOMA, LEFT ARM 11. SKIN GRAFT, LEFT ARM (FAILED) 12. SQUAMOUS CELL CARCINOMA, LEFT CHEEK 13. HISTORY OF LYMPHOMA 14. RIGHT KIDNEY MASS, DR. MATIAS 15. COPD 16. HYPOKALEMIA 17. RIGHT SUBCLAVIAN PORT, (SEPTEMBER 2017) DISCHARGE INSTRUCTIONS: Followup appointment is scheduled with Anna Nagel APRN/Dr. Case on at 11:15 (optional). A referral has been made to [facility] at the request of the patient and family. Information sent via fax to [facility]. The patient and family will be contacted after the discharge home today. MEDICATIONS AT DISCHARGE: Levothyroxine (Synthroid) 200 mcg p.o. q.d a.c. RUFINA NEW PRESCRIPTIONS: None DISCONTINUED MEDICATIONS: Aspirin Toujeo Folic Acid Ferrous Sulfate Lipitor Protonix DIET INSTRUCTIONS: Resume as tolerated. Recommendations for safe swallowing, aspiration precautions and oral care discussed by Speech TherapistKathryn with the , Kimber Zhu. Diet recommendations discussed with the by computer numerical control programmer, Jennifer Tyler. ACTIVITY: As tolerated. SMOKING: N/A DISEASE SPECIFIC EDUCATION: Right hilar lung mass Hospice Nutrition HOSPITAL COURSE: 82-year-old male hospitalized with overall deterioration of physical status from metastatic lung disease from melanoma being treated with complications for several years at [place] and in [place]. He has metastatic disease with hilar mass, severe dysphagia, unable to eat and getting weaker. The patient has declined all further treatment and has decided to go now with [facility]. V/S: Temperature 98.1, pulse 91, respiratory rate 16, BP 105/66, pulse ox 98%. TIME SPENT: More than 60 minutes. MTDD
--- NOTE | 2017-12-16 12:51 | PN ---
CODING FOR BILLING 12/12/17 LEVEL 5 12/13/17 INTERMEDIATE 12/14/17 INTERMEDIATE 12/15/17 INTERMEDIATE 12/16/17 DISCHARGE MTDD
== END 2017-12-16 13:15 | disposition home health service (06) | DRG 812 ==
LOC: ED 08:22 → MEDSURG A 10:13
PROVIDERS: ADMIT Internal Medicine; ATTEND Internal Medicine
DX: D64.9 Anemia, unspecified (principal); C79.9 Secondary malignant neoplasm of unspecified site; C78.01 Secondary malignant neoplasm of right lung; E11.9 Type 2 diabetes mellitus without complications; E86.0 Dehydration; E03.9 Hypothyroidism, unspecified; E78.5 Hyperlipidemia, unspecified; E87.6 Hypokalemia; D70.9 Neutropenia, unspecified; D09.8 Carcinoma in situ of other specified sites; R91.8 Other nonspecific abnormal finding of lung field; R13.10 Dysphagia, unspecified; R63.4 Abnormal weight loss; R06.02 Shortness of breath; J44.9 Chronic obstructive pulmonary disease, unspecified; I10 Essential (primary) hypertension
CPT/HCPCS: 36415; 80053; 81001; 82962; 84439; 84443; 85007; 85025; 85610; 85730; 87070; 87086; 87186; 93005; 93010; 97802; 99284

== ENCOUNTER 2018-01-17 15:38 | Outpatient (CLI) | END 2018-01-17 15:58 | disposition hospice, inpatient (51) | LOC: AMBL 15:38 | PROVIDERS: ATTEND Internal Medicine | DX: R53.1 Weakness (principal); C44.90 Unspecified malignant neoplasm of skin, unspecified; C34.90 Malignant neoplasm of unspecified part of unspecified bronchus or lung ==